=== PATIENT | female | born 1980 | race Caucasian/White ===

== ENCOUNTER → 2018-03-01 | Day surgery (SDC) | payer OTHER ==
[~2018-03-01] MED LIST: PROTONIX20 MG PO
== END | disposition home or self-care (01) ==
LOC: ADM 02-27 09:15 → CIR.AMB 07:00
DX: R87.613 High grade squamous intraepithelial lesion on cytologic smear of cervix (HGSIL) (principal); N87.1 Moderate cervical dysplasia